=== PATIENT | male | born 1975 | race Two or more races ===

== ENCOUNTER 2023-05-22 04:43 | Emergency (ER) | payer OTHER ==
[~2023-05-22] VITALS: Ht 180.3 cm; Wt 108.9 kg
[2023-05-22] MEDS ORDERED: COZAAR50 MG (04:50)
[2023-05-22] MEDS ORDERED: cloNIDine HCL 0.2 MG TABLET PO STA (06:27)
[2023-05-22] MEDS ORDERED: KETOROLAC TROMETHAMINE 60 MG VIAL IM SCH (06:30)
== END 2023-05-22 07:45 | disposition home or self-care (01) ==
LOC: ER 04:43
DX: I10 Essential (primary) hypertension (principal)

== ENCOUNTER 2023-05-24 15:03 | Emergency (ER) | payer OTHER ==
[~2023-05-24] VITALS: Ht 180.3 cm; Wt 106.6 kg
[~2023-05-24 15:03] MED LIST: COZAAR50 MG
[2023-05-24] MEDS ORDERED: TOPROL XL50 M1 (15:36)
[2023-05-24] MEDS ORDERED: ORPHENADRINE CITRATE 30 MG/ML AMPUL IM ONE (18:00)
[2023-05-24 18:38] LABS: HEMATOCRIT 44.1 % (39.0-48.0); HEMOGLOBIN 14.4 g/dL (13-16.00); MEAN CELL VOLUME 88.2 fL (80.0-100.00); MEAN CORPUSCULAR HEMOGLOBIN 28.9 pg (27.00-32.0); MEAN CORPUSCULAR HGB CONC 32.8 g/dl (32.0-36.0); PLATELET COUNT 239 K/uL (150-450)
[2023-05-24 18:42] LABS: URINE APPEARANCE Clear; URINE BILIRRUBIN Negative (NEGATIVE); URINE BLOOD Negative; URINE COLOR Yellow; URINE GLUCOSE Negative (NEGATIVE); URINE LEUKOCYTE Negative; URINE NITRATE Negative; URINE PROTEIN Negative (NEGATIVE); URINE UROBILINOGEN 0.2 E.U./dl
[2023-05-24 18:46] LABS: URINE BACTERIA 8.8 uL (0.0-1933)
[2023-05-24 18:48] LABS: URINE RBC 1.5 uL (0.0-20.8); URINE WBC 1.5 uL (0.0-23.2)
[2023-05-24 18:50] LABS: CALCIUM 9.4 mg/dL (8.5-10.1); CREATININE SERUM 1.08 mg/dL (0.70-1.30); GFR 73.61; POTASSIUM 4.37 mEq/L (3.5-5.1)
[2023-05-24] MEDS ORDERED: LOTREL 5-10 MG1 CAP PO (20:13)
[2023-05-24] MEDS ORDERED: KETOROLAC TROMETHAMINE 60 MG VIAL IM ONE (20:30)
[2023-05-24] MEDS ORDERED: DICLOFENAC SODI50 MG PO (21:32)
[2023-05-24] MEDS ORDERED: NORFLEX100MG PO (21:32)
== END 2023-05-24 21:05 | disposition home or self-care (01) ==
LOC: ER 15:03
PROVIDERS: Nurse Practitioner Family
DX: R51.9 Headache, unspecified (principal); I10 Essential (primary) hypertension